=== PATIENT | male | born 1945 | race Caucasian/White ===

== ENCOUNTER 2021-01-09 02:08 | Inpatient (IN) | payer MEDICARE, OTHER ==
[~2021-01-09] VITALS: Ht 170.2 cm; Wt 72.6 kg
[2021-01-09] MEDS ORDERED: dilTIAZem 25 MG/5 ML VIAL IV ONE ×2 (02:36→02:45)
[2021-01-09] MEDS ORDERED: SODIUM CHLORIDE 0.9% 500 ML IV ONE ×2 (03:00→05:00)
[2021-01-09 03:25] LABS: Basophils # (auto) 0 10 ^3/uL (0-0.2); Eosinophils # (auto) 0 10 ^3/uL (0-0.8); Eosinophils % (auto) 0.1 % (0.0-7.0); Hematocrit 34.4 % (41.0-53.0); Monocytes # (auto) 0.3 10 ^3/uL (0-1.3)
[2021-01-09 03:27] LABS: Basophils % (auto) 0.2 % (0.0-2.0); Lymphocytes # (auto) 0.4 10 ^3/uL (0.4-5.4); Lymphocytes % (auto) 3.7 % (10.0-50.0); Mean Corpuscular Hemoglobin 25.5 pg (28.0-32.0); Mean Corpuscular Hgb Conc. 31.8 g/dL (32.0-36.0); Mean Corpuscular Volume 80.2 fL (80.0-100.0); Monocytes % (auto) 3.4 % (0.0-12.0); Neutrophils # (auto) 9.2 10 ^3/uL (1.6-8.6); Neutrophils % (auto) 92.6 % (37.0-80.0); Nucleated Red Blood Cells % 0.2 %; Red Blood Cells 4.29 10^6/uL (4.5-5.90)
[2021-01-09 03:30] LABS: Red Cell Distribution Width 22.6 % (11.8-14.3)
[2021-01-09 03:39] LABS: INR 1.24 (0.9-1.15)
[2021-01-09 03:43] LABS: Albumin 1.3 g/dL (3.4-5.0); Calcium 8.2 mg/dL (8.5-10.1); Magnesium 2.5 mg/dL (1.6-2.6)
[2021-01-09] MEDS ORDERED: ONDANSETRON HCL 4 MG/2 ML VIAL IV ONE (03:45)
[2021-01-09] MEDS ORDERED: MORPHINE SULFATE INJECTION 2 MG/ML SYRG IV ONE (03:45)
[2021-01-09 03:47] LABS: Bilirubin, Total 1.5 mg/dL (0.2-1.0); Total Protein 6.6 g/dL (6.4-8.2)
[2021-01-09] MEDS ORDERED: ONDANSETRON HCL 4 MG/2 ML VIAL ONE (03:50)
[2021-01-09] MEDS ORDERED: diphenhdrAMINE HCL 50 MG/1 ML VL ONE (04:14)
[2021-01-09] MEDS ORDERED: diphenhdrAMINE HCL 50 MG/1 ML VL IV ONE (04:15)
[2021-01-09] MEDS ORDERED: VANCOMYCIN 1GM/250ML 250 ML IV ONE (05:00)
[2021-01-09] MEDS ORDERED: SODIUM ZIRCONIUM CYCL 10 GM PAK PO ONE ×2 (05:00→10:30)
[2021-01-09] MEDS ORDERED: DEXTROSE (50%) 50ML SYRG IV ONE ×3 (05:00→16:15)
[2021-01-09] MEDS ORDERED: ALBUTEROL SULF 2.5 MG/0.5ML(0.5%) NEB SOLN NEB ONE (05:00)
[2021-01-09] MEDS ORDERED: SODIUM BICARBONATE 8.4% INJ 50ML SYRINGE IV ONE (05:00)
[2021-01-09] MEDS ORDERED: CALCIUM GLUC 1,000mg/50ml-NS 50 ML IV ONE ×2 (05:00→16:15)
[2021-01-09] MEDS ORDERED: PIPERACILLIN-TAZOB 2.25GM 50 ML IV ONE (05:00)
[2021-01-09] MEDS ORDERED: InsuLIN REG 1unit/0.01ml Soln (100units/ml) IV ONE ×2 (05:00→16:15)
[2021-01-09 05:06] LABS: Urine Bacteria MANY /hpf (None Seen); Urine Blood Negative /uL (Negative); Urine Hyaline Cast MANY /lpf (0 - 2); Urine Mucus FEW (None Seen); Urine WBC 9 /hpf (0 - 3)
[2021-01-09] MEDS ORDERED: TEMAZEPAM 15 MG CAP PO PRN (06:45)
[2021-01-09] MEDS ORDERED: MORPHINE SULFATE INJECTION 2 MG/ML SYRG IV PRN (06:45)
[2021-01-09] MEDS ORDERED: ONDANSETRON HCL 4 MG/2 ML VIAL IV PRN (06:45)
[2021-01-09] MEDS ORDERED: ACETAMINOPHEN 325 MG TAB PO PRN (06:45)
[2021-01-09] MEDS ORDERED: NITROGLYCERIN 0.4 MG SL TAB SL PRN (06:45)
[2021-01-09] MEDS ORDERED: FUROSEMIDE 20 MG/2 ML VIAL IV SCH (07:59)
[2021-01-09 08:17] LABS: Potassium 5.6 mmol/L (3.5-5.1)
[2021-01-09] MEDS ORDERED: cefTRIAXone 1GM/50ML D5W 50 ML IV SCH (09:00)
[2021-01-09] MEDS ORDERED: FUROSEMIDE 20 MG TAB PO SCH (10:00)
[2021-01-09] MEDS ORDERED: SPIRONOLACTONE 25 MG TAB PO SCH (10:00)
[2021-01-09] MEDS ORDERED: METOPROLOL TARTRATE 25 MG TAB PO SCH (10:00)
[2021-01-09] MEDS: HEPARIN SODIUM (PORCINE) 5000 UNITS/ML 1ML VIAL SC SCH ×2 (10:23→22:35)
[2021-01-09] MEDS: LOSARTAN POTASSIUM 25 MG TAB PO SCH (10:24)
[2021-01-09] MEDS: PANTOPRAZOLE 40 MG TAB PO SCH (10:24)
[2021-01-09] MEDS: CARVEDILOL 3.125 MG TAB PO SCH ×2 (10:26→22:27)
[2021-01-09] MEDS: ASPirin 81 mg TAB PO SCH (10:26)
[2021-01-09] MEDS: SODIUM BICARBONATE 50ML VIAL 50 ML in SOD CHL 0.45% 1,000 ML IV SCH ×2 (10:30→22:06)
[2021-01-09] MEDS ORDERED: FUROSEMIDE 20 MG/2 ML VIAL IV ONE (10:30)
[2021-01-09] MEDS ORDERED: SODIUM CHLORIDE 0.9% 1,000 ML IV ONE (12:15)
[2021-01-09] MEDS: NOREPINEPHRINE 8 MG/250ML KIT 250 ML IV SCH (12:44)
[2021-01-09] MEDS: CLINDAMYCIN 600MG IV 50 ML IV SCH ×2 (14:15→22:26)
[2021-01-09 15:32] LABS: Hematocrit 33.2 % (41.0-53.0); Hemoglobin 10.2 g/dL (13.5-17.5); Mean Corpuscular Hemoglobin 25.2 pg (28.0-32.0); Mean Corpuscular Hgb Conc. 30.7 g/dL (32.0-36.0); Mean Corpuscular Volume 82.2 fL (80.0-100.0); Red Blood Cells 4.04 10^6/uL (4.5-5.90)
[2021-01-09 15:36] LABS: Red Cell Distribution Width 22.6 % (11.8-14.3)
[2021-01-09 15:37] LABS: Basophils % (manual) 0 (0.0-2.0); Blast Cells 0; Eosinophils % (manual) 0 (0-7); Metamyelocytes % 0; Myelocytes % 0; Promyelocytes % 0; Reactive Lymphocytes 0
[2021-01-09 15:53] LABS: Albumin 1.1 g/dL (3.4-5.0); Calcium 7.5 mg/dL (8.5-10.1)
[2021-01-09 15:57] LABS: BUN/Creatinine Ratio 30.6; Bilirubin, Total 1.3 mg/dL (0.2-1.0); Total Protein 5.8 g/dL (6.4-8.2)
[2021-01-09 15:59] LABS: Potassium 6.4 mmol/L (3.5-5.1)
[2021-01-09] MEDS ORDERED: DEXTROSE 50% SYRINGE 50 ML IV ONE (16:02)
[2021-01-09] MEDS ORDERED: THIAMINE 100mg/ml INJ (200mg/2ml VIAL) IV ONE (16:15)
[2021-01-09] MEDS: D5W/SOD CHL 0.45% 1,000 ML IV SCH (16:47)
[2021-01-09] MEDS: ACCU-CHEK COMFORT CURVE STRIP VI SCH ×8 (16:51→23:15)
[2021-01-09 16:59] LABS: Band Neutrophils % (manual) 25; Lymphocytes % (manual) 4 (10.0-50.0); Monocytes % (manual) 10 (0-12)
[2021-01-09] MEDS: PHENYLEPHRINE IV 250 ML IV SCH (20:23)
[2021-01-09] MEDS: SODIUM ZIRCONIUM CYCL 10 GM PAK PO SCH (22:27)
[2021-01-09] MEDS: ATORVASTATIN 20 MG TAB PO SCH (22:27)
[2021-01-09] MEDS ORDERED: VANCOMYCIN PER PHARMACY 0 MG IV SCH (23:30)
[2021-01-10 00:13] LABS: Sodium Urine 5 mmol/L (40-220)
[2021-01-10] MEDS: ACCU-CHEK COMFORT CURVE STRIP VI SCH ×23 (00:15→22:15)
[2021-01-10 00:18] LABS: Creatinine, Urine 274 mg/dL (30.0-125.0)
[2021-01-10 01:26] LABS: Lactic Acid w/Reflex 2.4 mmol/L (0.4-2.0)
[2021-01-10] MEDS: PHENYLEPHRINE IV 250 ML IV SCH ×4 (04:20→21:00)
[2021-01-10] MEDS: SODIUM ZIRCONIUM CYCL 10 GM PAK PO SCH ×3 (06:00→22:00)
[2021-01-10] MEDS: PIPERACILLIN-TAZOB 3.375GM 100 ML IV SCH ×3 (06:13→22:20)
[2021-01-10 07:29] LABS: Basophils # (auto) 0 10 ^3/uL (0-0.2); Eosinophils # (auto) 0 10 ^3/uL (0-0.8); Hemoglobin 9.9 g/dL (13.5-17.5)
[2021-01-10 07:32] LABS: Basophils % (auto) 0.3 % (0.0-2.0); Eosinophils % (auto) 0.2 % (0.0-7.0); Hematocrit 32.5 % (41.0-53.0); Lymphocytes % (auto) 8.2 % (10.0-50.0); Mean Corpuscular Hemoglobin 25.3 pg (28.0-32.0); Mean Corpuscular Hgb Conc. 30.4 g/dL (32.0-36.0); Mean Corpuscular Volume 83.2 fL (80.0-100.0); Monocytes # (auto) 0.9 10 ^3/uL (0-1.3); Monocytes % (auto) 7.5 % (0.0-12.0); Neutrophils # (auto) 9.8 10 ^3/uL (1.6-8.6); Neutrophils % (auto) 83.8 % (37.0-80.0); Nucleated Red Blood Cells % 0.7 %; Red Blood Cells 3.91 10^6/uL (4.5-5.90); White Blood Cell 11.7 10^3/uL (4.4-10.8)
[2021-01-10 07:35] LABS: Red Cell Distribution Width 22.6 % (11.8-14.3)
[2021-01-10] MEDS: D5W/SOD CHL 0.45% 1,000 ML IV SCH (08:10)
[2021-01-10] MEDS: CARVEDILOL 3.125 MG TAB PO SCH ×2 (08:45→22:00)
[2021-01-10] MEDS: LOSARTAN POTASSIUM 25 MG TAB PO SCH (08:46)
[2021-01-10] MEDS: ASPirin 81 mg TAB PO SCH (08:46)
[2021-01-10] MEDS: PANTOPRAZOLE 40 MG TAB PO SCH (08:46)
[2021-01-10] MEDS ORDERED: FUROSEMIDE 40 MG/4 ML VIAL IV SCH (10:00)
[2021-01-10] MEDS: HEPARIN SODIUM (PORCINE) 5000 UNITS/ML 1ML VIAL SC SCH (10:33)
[2021-01-10] MEDS: DEXTROSE (50%) 50ML SYRG IV PRN (10:40)
[2021-01-10] MEDS ORDERED: AMIODARONE HCL 150 MG in D5W 5% 100 ML IV ONE (11:15)
[2021-01-10] MEDS ORDERED: SODIUM BICARB 50ML SYR 150 ML in D5W/SOD CHL 0.45% 1,000 ML IV SCH (11:15)
[2021-01-10] MEDS ORDERED: AMIODARONE 450mg/250ml AE 250 ML IV SCH ×2 (11:30→17:30)
[2021-01-10] MEDS ORDERED: HEPARIN SODIUM (PORCINE) 5000 UNITS/ML 1ML VIAL IV ONE (11:45)
[2021-01-10] MEDS ORDERED: HEPARIN DRIP/D5W 100UNITS/ML 250 ML IV SCH (11:45)
[2021-01-10] MEDS ORDERED: FOLIC ACID 1 MG, MULTIPLE VITAMIN 10 ML, MAGNESIUM SULF SDV 50% 8 MEQ, THIAMINE INJ 100... INJ SCH ×5 (12:00)
[2021-01-10] MEDS ORDERED: VANCOMYCIN 1GM/250ML 250 ML IV ONE (12:00)
[2021-01-10] MEDS: NOREPINEPHRINE 8 MG/250ML KIT 250 ML IV SCH (12:15)
[2021-01-10] MEDS: SODIUM BICARB 50ML SYR 150 ML in D5W 5% 1,000 ML IV SCH (12:46)
[2021-01-10 14:58] LABS: INR 1.32 (0.9-1.15)
[2021-01-10 15:30] LABS: Sodium 141 mmol/L (136-145)
[2021-01-10 15:31] LABS: Alkaline Phosphatase 144 U/L (45-117); Anion Gap 7 (5-15); Aspartate Aminotransferase 33 U/L (15-37); BUN/Creatinine Ratio 30.6; Carbon Dioxide 18 mmol/L (21-32); Chloride 116 mmol/L (98-107); GFR African American 28 mL/min; GFR Non-African American 23 mL/min; Glucose 144 mg/dL (74-106)
[2021-01-10 15:32] LABS: Alanine Aminotransferase 35 U/L (16-61); Bilirubin, Total 0.9 mg/dL (0.2-1.0); Calcium 7.4 mg/dL (8.5-10.1); Magnesium 2.8 mg/dL (1.6-2.6); Total Protein 5.7 g/dL (6.4-8.2)
[2021-01-10 15:40] LABS: Blood Urea Nitrogen 86 mg/dL (7-18); Potassium 6.5 mmol/L (3.5-5.1)
[2021-01-10] MEDS ORDERED: DEXTROSE (50%) 50ML SYRG IV ONE ×2 (21:30→21:45)
[2021-01-10] MEDS ORDERED: InsuLIN REG 1unit/0.01ml Soln (100units/ml) IV ONE ×2 (21:30→21:45)
[2021-01-10] MEDS ORDERED: SODIUM BICARBONATE 8.4% INJ 50ML SYRINGE IV ONE ×2 (21:30→21:45)
[2021-01-10] MEDS: ATORVASTATIN 20 MG TAB PO SCH (22:00)
[2021-01-10 22:06] LABS: INR 1.44 (0.9-1.15)
[2021-01-10 22:13] LABS: Partial Thromboplastin Time 76.5 sec (23.6-33.0)
[2021-01-11] VITALS (9 sets, daily range): BP systolic 70–126; BP diastolic 20–76
[2021-01-11] MEDS: ACCU-CHEK COMFORT CURVE STRIP VI SCH ×4 (00:13→02:07)
[2021-01-11] MEDS: DEXTROSE (50%) 50ML SYRG IV PRN (02:06)
[2021-01-11 02:11] LABS: Hematocrit 29.2 % (41.0-53.0); White Blood Cell 14.8 10^3/uL (4.4-10.8)
[2021-01-11 02:14] LABS: Hemoglobin 8.9 g/dL (13.5-17.5); Mean Corpuscular Hemoglobin 25.3 pg (28.0-32.0); Mean Corpuscular Hgb Conc. 30.6 g/dL (32.0-36.0); Mean Corpuscular Volume 82.6 fL (80.0-100.0); Red Blood Cells 3.53 10^6/uL (4.5-5.90)
[2021-01-11] MEDS: SODIUM BICARB 50ML SYR 150 ML in D5W 5% 1,000 ML IV SCH (02:14)
[2021-01-11 02:15] LABS: Red Cell Distribution Width 22.7 % (11.8-14.3)
[2021-01-11 02:16] LABS: Basophils % (manual) 0 (0.0-2.0); Blast Cells 0; Eosinophils % (manual) 0 (0-7); Promyelocytes % 0; Reactive Lymphocytes 0
[2021-01-11] MEDS: PHENYLEPHRINE IV 250 ML IV SCH (02:16)
[2021-01-11] MEDS: NOREPINEPHRINE 8 MG/250ML KIT 250 ML IV SCH (02:17)
[2021-01-11 02:21] LABS: BUN/Creatinine Ratio 28.2; Calcium 7.5 mg/dL (8.5-10.1)
[2021-01-11 02:24] LABS: Bilirubin, Total 1.3 mg/dL (0.2-1.0); Total Protein 5.8 g/dL (6.4-8.2)
[2021-01-11 02:26] LABS: INR 1.56 (0.9-1.15)
[2021-01-11 02:28] LABS: Potassium 6.7 mmol/L (3.5-5.1)
[2021-01-11] MEDS ORDERED: FUROSEMIDE 40 MG/4 ML VIAL IV ONE (02:30)
[2021-01-11] MEDS ORDERED: SODIUM BICARBONATE 8.4% INJ 50ML SYRINGE IV ONE (02:30)
[2021-01-11] MEDS ORDERED: ALBUTEROL SULF 2.5 MG/0.5ML(0.5%) NEB SOLN NEB ONE (02:30)
[2021-01-11] MEDS ORDERED: InsuLIN REG 1unit/0.01ml Soln (100units/ml) IV ONE (02:30)
[2021-01-11] MEDS ORDERED: CALCIUM GLUC 1,000mg/50ml-NS 50 ML IV ONE ×2 (02:30→02:34)
[2021-01-11] MEDS ORDERED: DEXTROSE (50%) 50ML SYRG IV ONE (02:30)
[2021-01-11] MEDS ORDERED: DEXTROSE 50% SYRINGE 50 ML IV ONE ×2 (02:34→04:32)
[2021-01-11] MEDS ORDERED: SODIUM BICARBONATE 8.4% INJ 50ML SYRINGE ONE (02:34)
[2021-01-11] MEDS ORDERED: FUROSEMIDE 40 MG/4 ML VIAL ONE (02:35)
[2021-01-11 02:51] LABS: Partial Thromboplastin Time 71.9 sec (23.6-33.0)
[2021-01-11 03:08] LABS: Band Neutrophils % (manual) 27; Lymphocytes % (manual) 10 (10.0-50.0); Metamyelocytes % 1; Monocytes % (manual) 4 (0-12); Myelocytes % 3
[2021-01-11] MEDS ORDERED: VASOPRESSIN 50 UNITS in D5W 5% 247.5 ML IV SCH (03:15)
[2021-01-11 04:32] LABS: Hematocrit 28.8 % (41.0-53.0); Hemoglobin 8.7 g/dL (13.5-17.5); Mean Corpuscular Hemoglobin 24.9 pg (28.0-32.0); Mean Corpuscular Hgb Conc. 30.2 g/dL (32.0-36.0); Mean Corpuscular Volume 82.5 fL (80.0-100.0); Red Blood Cells 3.49 10^6/uL (4.5-5.90); White Blood Cell 16.4 10^3/uL (4.4-10.8)
[2021-01-11 04:45] LABS: Red Cell Distribution Width 22.3 % (11.8-14.3)
[2021-01-11 04:47] LABS: Basophils % (manual) 0 (0.0-2.0); Blast Cells 0; Eosinophils % (manual) 0 (0-7); Metamyelocytes % 0; Promyelocytes % 0; Reactive Lymphocytes 0
[2021-01-11 04:49] LABS: BUN/Creatinine Ratio 27.3; Calcium 7.6 mg/dL (8.5-10.1)
[2021-01-11 04:50] LABS: Lactic Acid w/Reflex 2.4 mmol/L (0.4-2.0)
[2021-01-11 04:51] LABS: Bilirubin, Total 1.2 mg/dL (0.2-1.0); Total Protein 5.7 g/dL (6.4-8.2)
[2021-01-11] MEDS ORDERED: DEXTROSE 10% 1,000 ML IV ONE (05:29)
[2021-01-11 05:31] LABS: Potassium 5.7 mmol/L (3.5-5.1)
[2021-01-11] MEDS ORDERED: ETOMIDATE (2MG/ML) 20ML VIAL IV ONE (05:42)
[2021-01-11] MEDS ORDERED: ROCURONIUM 10MG/ML 10ML VIAL IV ONE (05:42)
[2021-01-11] MEDS ORDERED: SUCCINYLCHOLINE CHLORIDE 20 MG/ML 10ML VIAL IV ONE (05:43)
[2021-01-11] MEDS ORDERED: DEXTROSE 10% 1,000 ML IV SCH (05:45)
[2021-01-11] MEDS ORDERED: LORazepam 2MG/ML-1ML VIAL IV PRN (06:30)
[2021-01-11 06:43] LABS: Band Neutrophils % (manual) 46; Lymphocytes % (manual) 8 (10.0-50.0); Monocytes % (manual) 11 (0-12); Myelocytes % 1
[2021-01-11] MEDS: MORPHINE SULFATE INJECTION 2 MG/ML SYRG IV PRN ×3 (06:49→14:43)
== END 2021-01-11 23:25 | DRG 871 ==
LOC: ER 02:08 → EDBD 02:08 → TELE 06:35 → ICU WEST 01-10 23:53 → WEST WING 01-11 08:15
PROVIDERS: ADMIT Nurse Practitioner; ATTEND Internal Medicine
PROC: 5A0935A Assistance with Respiratory Ventilation, Less than 24 Consecutive Hours, High Flow/Velocity Cannula (ICD-10-PCS; principal; 2021-01-11)
DX: A41.50 Gram-negative sepsis, unspecified (principal); R65.21 Severe sepsis with septic shock; N17.0 Acute kidney failure with tubular necrosis; E43 Unspecified severe protein-calorie malnutrition; J96.01 Acute respiratory failure with hypoxia; L03.115 Cellulitis of right lower limb; L03.116 Cellulitis of left lower limb; D68.59 Other primary thrombophilia; N39.0 Urinary tract infection, site not specified; I13.0 Hypertensive heart and chronic kidney disease with heart failure and stage 1 through stage 4 chronic kidney disease, or unspecified chronic kidney disease; I50.22 Chronic systolic (congestive) heart failure; Z66 Do not resuscitate; I25.10 Atherosclerotic heart disease of native coronary artery without angina pectoris; E87.5 Hyperkalemia; I48.91 Unspecified atrial fibrillation; D63.1 Anemia in chronic kidney disease; N18.30 Chronic kidney disease, stage 3 unspecified; E11.40 Type 2 diabetes mellitus with diabetic neuropathy, unspecified; E11.649 Type 2 diabetes mellitus with hypoglycemia without coma; E11.22 Type 2 diabetes mellitus with diabetic chronic kidney disease; E11.21 Type 2 diabetes mellitus with diabetic nephropathy; F10.10 Alcohol abuse, uncomplicated; Z51.5 Encounter for palliative care; Z91.14 Patient's other noncompliance with medication regimen; Z68.25 Body mass index [BMI] 25.0-25.9, adult
CPT/HCPCS: 36415; 36600; 71045; 73590; 76705; 76775; 80053; 80202; 81001; 82570; 82805; 82962; 83605; 83735; 83880; 84132; 84156; 84300; 84484; 85007; 85025; 85027; 85610; 85730; 87040; 87077; 87081; 87186; 87426; 93005; 93306; 94640; 96365; 96366; 96367; 96368; 96375; G0378; J0330; J0696; J1815; J2405; J2543; J3490; J7060